=== PATIENT | male | born 1945 | race Caucasian/White ===

== ENCOUNTER 2016-07-03 02:37 | Emergency (ER) | payer OTHER, MEDICARE ==
--- NOTE | 2016-07-04 00:14 | ER ---
ADMIT: 07/03/2016 RM/LOC: ER [facility] MR#: [id number] [facility] [address] [place], [place] [id number] ESPARZAJESUS Neri [address] [place] [id number] Emergency Room Report SEX: M AGE: 70 : 1945 DATE: 07/03/2016 TIME: 0237 Please refer to my T-sheet for complete H and P. HISTORY OF PRESENT ILLNESS: Briefly, the patient is a 70-year-old who comes in with vomiting and coffee-grounds emesis today. He has multiple past medical problems including cardiac disease, diabetes, peripheral vascular disease. He has had a left kxarq-ogk-elro amputation. He is a DNR/DNI. He has currently been in the inpatient rehab center for the DC healing a foot ulcer on his right leg. PHYSICAL EXAMINATION: VITAL SIGNS: Blood pressure 136/64, pulse 62, respirations 15, temp is 96.2, pulse ox 98%. GENERAL: He is in no acute distress. HEENT: Grossly normal. LUNGS: Clear. HEART: Regular. ABDOMEN: Soft, slightly tender. No rebound or guarding. EXTREMITIES: He has left fgoyn-pqi-zhah amputation. His right foot has ulcers on it that are healing he says. EMERGENCY DEPARTMENT COURSE: CT abdomen and pelvis without contrast revealed abdominal wall small hematoma, some ascites, some mesenteric inflammation. His CBC was normal, except white count 4.1, hemoglobin 9.3. Eight hours ago, his hemoglobin was 9.4. Chemistries normal except BUN 50, glucose 138, creatinine 2.8. His PT was 12.5, PTT 28.7, INR 1.2. Lipase normal. He was given 250 normal saline bolus, Reglan 10 IV, Protonix 40 IV, TXA 1 g IV, Zofran 4 mg IV. He was improved. I contacted the DC as he receives his care there. Dr. Oliva accepted transfer to [facility]. ASSESSMENT: 1. Gastrointestinal bleed, upper in nature. 2. Nausea and vomiting. 3. Abdominal pain. 4. Renal insufficiency. PLAN: Transfer to the [facility], due to insurance request. Dmitriy Hyde MD/ gallo JOB #: [id number] CC: Dmitriy Hyde MD, Attending Physician [facility] Physician, Family Physician
== END 2016-07-03 05:39 ==
LOC: ER 02:37
DX: K92.2 Gastrointestinal hemorrhage, unspecified (principal); N28.9 Disorder of kidney and ureter, unspecified; I11.0 Hypertensive heart disease with heart failure; I50.9 Heart failure, unspecified; E11.9 Type 2 diabetes mellitus without complications; E78.5 Hyperlipidemia, unspecified; I73.9 Peripheral vascular disease, unspecified; Z90.49 Acquired absence of other specified parts of digestive tract; Z95.1 Presence of aortocoronary bypass graft; Z88.2 Allergy status to sulfonamides; Z88.1 Allergy status to other antibiotic agents; Z88.8 Allergy status to other drugs, medicaments and biological substances; Z79.899 Other long term (current) drug therapy; Z79.84 Long term (current) use of oral hypoglycemic drugs

== ENCOUNTER → 2016-08-11 | Outpatient (CLI) | payer OTHER | END | disposition home or self-care (01) | LOC: CARD 12:39 | DX: M86.9 Osteomyelitis, unspecified (principal) ==